=== PATIENT | female | born 1945 | race Two or more races ===

== ENCOUNTER 2017-09-01 11:00 | Outpatient (CLI) | payer OTHER | END 2017-09-01 14:09 | disposition home or self-care (01) | LOC: LAB 11:00 | DX: K58.0 Irritable bowel syndrome with diarrhea (principal); K92.1 Melena; D12.7 Benign neoplasm of rectosigmoid junction; K29.00 Acute gastritis without bleeding ==

== ENCOUNTER 2017-09-05 08:09 | Day surgery (SDC) | payer OTHER | END 2017-09-05 15:00 | disposition home or self-care (01) | LOC: AMB-ENDOS 08:09 → CIR LITO 15:07 → AMB-ENDOS 18:02 | DX: D12.4 Benign neoplasm of descending colon (principal); K57.30 Diverticulosis of large intestine without perforation or abscess without bleeding; K64.2 Third degree hemorrhoids; Z12.11 Encounter for screening for malignant neoplasm of colon ==

== ENCOUNTER 2020-09-08 07:02 | Day surgery (SDC) | payer OTHER | END 2020-09-08 12:50 | disposition home or self-care (01) | LOC: AMB-ENDOS 07:02 | PROVIDERS: ATTEND Colon & Rectal Surgery | DX: D13.1 Benign neoplasm of stomach (principal); D13.2 Benign neoplasm of duodenum; K44.9 Diaphragmatic hernia without obstruction or gangrene; K64.0 First degree hemorrhoids; Z20.822 Contact with and (suspected) exposure to COVID-19 ==

== ENCOUNTER 2022-05-06 10:00 | Inpatient (IN) | payer OTHER ==
[~2022-05-06] VITALS: Ht 157.5 cm; Wt 59.0 kg
[2022-05-06] MEDS ORDERED: SYNTHROID75 MCG PO (11:12)
[2022-05-06] MEDS ORDERED: METFORMIN HCL1000 M2 PO (11:12)
[2022-05-06] MEDS ORDERED: ZOCOR40 MG PO (11:13)
[2022-05-06] MEDS ORDERED: PROTONIX20 MG PO (11:13)
[2022-05-06] MEDS ORDERED: AMBIEN10 MG PO (11:13)
[2022-05-06] MEDS ORDERED: REGLAN5 MG/5 ML PO (11:13)
[2022-05-08] MEDS ORDERED: METOCLOPRAMIDE10 MG (08:13)
== END 2022-05-10 17:01 | DRG 470 ==
LOC: O/R 05-07 05:55 → SURG 05-07 05:55
PROVIDERS: ADMIT Orthopaedic Surgery; ATTEND Orthopaedic Surgery
PROC: 0SRC0JZ Replacement of Right Knee Joint with Synthetic Substitute, Open Approach (ICD-10-PCS; principal; 2022-05-07 06:45)
DX: M17.11 Unilateral primary osteoarthritis, right knee (principal); D62 Acute posthemorrhagic anemia; M85.661 Other cyst of bone, right lower leg; M85.861 Other specified disorders of bone density and structure, right lower leg; E03.9 Hypothyroidism, unspecified

== ENCOUNTER 2022-12-04 09:38 | Inpatient (IN) | payer OTHER ==
[~2022-12-04] VITALS: Ht 157.5 cm; Wt 56.2 kg
[~2022-12-04 09:38] MED LIST: AMBIEN10 MG PO; METFORMIN HCL1000 M2 PO; METOCLOPRAMIDE10 MG; PROTONIX20 MG PO; REGLAN5 MG/5 ML PO; SYNTHROID75 MCG PO; ZOCOR40 MG PO
[2022-12-05] MEDS ORDERED: SYNTHROID75 MCG PO (12:14)
[2022-12-05] MEDS ORDERED: GLUMETZA1000 MG PO (12:14)
[2022-12-10] MEDS ORDERED: METOCLOPRAMIDE10 MG (10:11)
[2022-12-10] MEDS ORDERED: FLUOCINOLONE AC20 ML (10:11)
[2022-12-10] MEDS ORDERED: MOMETASONE FURO17 GM (10:11)
[2022-12-10] MEDS ORDERED: PANTOPRAZOLE SO40 MG (10:11)
[2022-12-10] MEDS ORDERED: DICYCLOMINE HCL20 MG (10:11)
[2022-12-10] MEDS ORDERED: DICLOFENAC POTA50 MG (10:11)
[2022-12-10] MEDS ORDERED: FAMCICLOVIR250 MG (10:12)
[2022-12-10] MEDS ORDERED: CHOLESTYRAMINE L4 GM (10:12)
== END 2022-12-13 10:27 | disposition designated cancer center or children's hospital (05) | DRG 470 ==
LOC: SURG 12-10 07:00 → O/R 12-10 08:16 → SURH 12-10 08:16 → SURG 12-10 09:30 → SURH 12-10 13:51
PROVIDERS: ADMIT Orthopaedic Surgery; ATTEND Orthopaedic Surgery
PROC: 0SRD0JZ Replacement of Left Knee Joint with Synthetic Substitute, Open Approach (ICD-10-PCS; principal; 2022-12-10 07:00)
DX: M17.12 Unilateral primary osteoarthritis, left knee (principal); M85.662 Other cyst of bone, left lower leg